=== PATIENT | male | born 1955 | race Caucasian/White ===

== ENCOUNTER 2025-03-11 02:55 | Emergency (ER) | payer OTHER ==
--- OUTSIDE RECORDS SUMMARY | 2025-03-11 02:57 | XMS REPORT | Continuity of Care Document ---
Author Name Unknown Address [address] [facility] [place] [id number] [facility] Address [address] [facility] [place] [address] Care Team Providers Care Corporate Law Specialist Name Role Phone ALLAN NGUYEN Primary Care Physician RADHA Curtis Attending Clinician Unavailabl e Social History Social Habit Start Date Stop Date Quantity Comments Source Sex Assigned At 1955 00:00:00 1955 00:00:[address] [facility] Smoking Status Start Date Stop Date Source Unknown if ever smoked [facility] Medications Ordered Medication Name Filled Medication Name Start Date Stop Date Current Medication? Ordering Clinician Indication Dosage Frequency Signature (SIG) Comments Components Source Eliquis 5MG 11-17 13:55: 00 No 1 Twice A [facility] Vital Signs Vital Name Observation Time Observation Value Comments S ourgisselle BP Diastolic 2023-11-17 14:10:00 70 mm[Hg] [facility] rate 2023-11-17 14:10:00 18 /min [facility] Heart Rate 2023-11-17 14:10:00 72 /min JING FITCH [facility] Weight 2023-11-17 09:44:00 90.962027 kg [facility] BMI (Body Mass Index) 2023-11-17 09:44:00 27.1 kg/m2 [facility] Procedures Procedure Date / Time Performed Performing Clinicia n Source Bilateral venous duplex scan of extremities 2023-11-17 00:00:00 [facility] Encounters Start Date/Time End Date/Time Encounter Type Admission Type Attending Clinicians Care Facility Care Department Encounter ID Source 2023-11-17 09:27:00 2023-11-17 14:07:00 Emergency ER RADHA QUINTERO [facility] [id number] [facility] l 2023-11-17 09:27:00 2023-11-17 14:07:[address] [facility] [id number] 39 [facility] Results Test Description Test Time Test Comments Results Result Co mments Source [facility] HospitalAutomated erythrocyte mean corpuscular volume (MCV) [id number] 10:10:00* Test Item Value Reference Range Interpretation Comme nts Mean Corpuscular Volume (jackie t code = 787-2) 92.3 80-97 [facility] HospitalAutomated erythrocyte mean corpuscular hemoglobin (mass per erythrocyte)2023-11-17 10:10:00* Test Item Value Reference Range Interpretation Comme nts Mean Corpuscular Hemoglobin (test code = 785-6) 30.8 27.0-31.2 [facility] HospitalAutomated erythrocyte mean corpuscular hemoglobin concentration (MCHC) measurement ([id number] 10:10:00* Test Item Value Reference Range Interpretation Comme nts Mean Corpuscular Hemoglobin Concent (test code = 786-4) 33.3 31.8-35.4 [facility] HospitalAutomated erythrocyte distribution width [id number] 10:10:00* Test Item Value Reference Range Interpretation Comme nts Red Cell Distribution Width (test code = 788-0) 13.2 12.5-18.0 [facility] HospitalAutomated blood platelet count (count/volume) 2023-11-17 10:10:00* Test Item Value Reference Range Interpretation Comme nts Platelet Count (test code = 777-3) 188 142-424 [facility] HospitalAutomated blood neutrophil count as percentage of total [id number] 10:10:00* Test Item Value Reference Range Interpretation Comme nts Neutrophils (%) (Auto) (test code = 770-8) 65.6 37-80 [facility] HospitalAutomated blood lymphocyte count as percentage of total [id number] 10:10:00* Test Item Value Reference Range Interpretation Comme nts Lymphocytes (%) (Auto) (test code = 736-9) 21.1 25-40 [facility] HospitalAutomated blood monocyte count as percentage of total [id number] 10:10:00* Test Item Value Reference Range Interpretation Comme nts Monocytes (%) (Auto) (test c ode = 5905-5) 10.4 1-15 [facility] HospitalAutomated blood eosinophil count as percentage of total [id number] 10:10:00* Test Item Value Reference Range Interpretation Comme nts Eosinophils (%) (Auto) (test code = 713-8) 2.2 1-3 [facility] HospitalAutomated blood basophil count as percentage of total [id number] 10:10:00* Test Item Value Reference Range Interpretation Comme nts Basophils (%) (Auto) (test c ode = 706-2) 0.5 0-3 [facility] HospitalAutomated blood nucleated erythrocyte count as percentage of total [id number] 10:10:00* Test Item Value Reference Range Interpretation Comme nts Nucleated Red Blood Cells % (test code = 76638-5) 0.0 [facility] HospitalAutomated blood neutrophil count (number/volume)2023-11-17 10:10:00* Test Item Value Reference Range Interpretation Comme nts Neutrophils # (Auto) (test c ode = 751-8) 3.79 1.8-7.7 [facility] HospitalFibrin D-dimer FEU [id number] 10:10:00* Test Item Value Reference Range Interpretation Comme nts D-Dimer (test code = 019606993) 1341 0.00-500 [facility])2023-11-17 10:10:00* Test Item Value Reference Range Interpretation Comme nts Sodium Level (test code = 17833-5) 140 135-145 [facility] potassium measurement (moles/volume)2023-11-17 10:10:00* Test Item Value Reference Range Interpretation Comme nts Potassium Level (test code = 2823-3) 4.4 3.6-5.2 [facility] chloride measurement (moles/volume)2023-11-17 10:10:00* Test Item Value Reference Range Interpretation Comme nts Chloride Level (test code = 2075-0) 103 100-108 [facility] carbon dioxide measurement (moles/volume)2023-11-17 10:10:00* Test Item Value Reference Range Interpretation Comme nts Carbon Dioxide Level (test c ode = 8-9) 26 21-32 [facility] anion [id number] 10:10:00 * Test Item Value Reference Range Interpretation Comme nts Anion Gap (test code = 89015-1) 11.0 3.0-11.0 [facility] urea nitrogen measurement (mass/volume)2023-11-17 10:10:00* Test Item Value Reference Range Interpretation Comme nts Blood Urea Nitrogen (test co de = 3094-0) 18 7-18 [facility] creatinine measurement (mass/volume)2023-11-17 10:10:00* Test Item Value Reference Range Interpretation Comme nts Creatinine (test code = 2160-0) 1.06 0.70-1.30 [facility] HospitalGFR estimate [id number] 10:10:00* Test Item Value Reference Range Interpretation Comme nts Estimat Glomerular Filtratio n Rate (test code = 991523401) > 60 >60 [facility] HospitalSerum or plasma urea nitrogen/creatinine mass [id number] 10:10:00* Test Item Value Reference Range Interpretation Comme nts BUN/Creatinine Ratio (test c ode = 3097-3) 16.98 7-18 [facility] HospitalSerum or plasma glucose measurement (mass/volume)2023-11-17 10:10:00* Test Item Value Reference Range Interpretation Comme nts Glucose Level (test code = 2345-7) 94 70-110 [facility] calcium measurement (mass/volume)2023-11-17 10:10:00* Test Item Value Reference Range Interpretation Comme nts Calcium Level (test code = 09213-1) 9.0 8.8-10.5 [facility] total bilirubin measurement (mass/volume)2023-11-17 10:10:00* Test Item Value Reference Range Interpretation Comme nts Total Bilirubin (test code = 1975-2) 1.5 0.0-1.0 [facility] HospitalSerum or plasma aspartate aminotransferase measurement (enzymatic activity/volume)2023-11-17 10:10:00* Test Item Value Reference Range Interpretation Comme nts Aspartate Amino Transf (AST/ SGOT) (test code = 1920-8) 26 15-37 [facility] alanine aminotransferase measurement (enzymatic activity/volume)2023-11-17 10:10:00* Test Item Value Reference Range Interpretation Comme nts Alanine Aminotransferase (AL T/SGPT) (test code = 1742-6) 43 12-78 [facility] HospitalSerum or plasma protein measurement (mass/volume)2023-11-17 10:10:00* Test Item Value Reference Range Interpretation Comme nts Total Protein (test code = 2885-2) 7.6 6.4-8.2 [facility] HospitalSerum or plasma albumin measurement (mass/volume)2023-11-17 10:10:00* Test Item Value Reference Range Interpretation Comme nts Albumin (test code = 1751-7) 4.0 3.4-5.0 [facility] globulin measurement by calculation (mass/volume)2023-11-17 10:10:00* Test Item Value Reference Range Interpretation Comme nts Globulin (test code = 97519-8) 3.6 2.3-3.5 [facility] HospitalSerum or plasma albumin/globulin mass ratio 2023-11-17 10:10:00* Test Item Value Reference Range Interpretation Comme nts Albumin/Globulin Ratio (test code = 1759-0) 1.111 1.1-1.8 [facility] HospitalSerum or plasma alkaline phosphatase measurement (enzymatic activity/volume)2023-11-17 10:10:00* Test Item Value Reference Range Interpretation Comme [facility] Alkaline Phosphatase (test c ode = 6768-6) 70 46-116 [facility] HospitalSerum or plasma natriuretic peptide B prohormone N-terminal measurement (mass/volume)2023-11-17 10:10:00* Test Item Value Reference Range Interpretation Comme [facility] Pro-B-Type Natriuretic Pepti de (test code = 73447-1) 30 0-125 [facility] leukocyte count (number/volume)2023-11-17 10:10:00* Test Item Value Reference Range Interpretation Comme [facility] White Blood Count (test code = 6690-2) 5.8 4.6-10.2 [facility] automated count (number/volume)2023-11-17 10:10:00* Test Item Value Reference Range Interpretation Comme [facility] Red Blood Count (test code = 789-8) 5.07 4.7-6.1 [facility] hemoglobin measurement (mass/volume) 2023-11-17 10:10:00* Test Item Value Reference Range Interpretation Comme [facility] Hemoglobin (test code = 718-7) 15.6 14.0-18.0 [facility]
[2025-03-11] MEDS ORDERED: IPRATROPIUM BROM 0.5MG/2.5ML ONE (03:55)
[2025-03-11] MEDS ORDERED: ALBUTEROL 2.5 MG/3 ML NEB SOL ONE (03:55)
[2025-03-11] MEDS ORDERED: predniSONE 20 MG TAB ONE (03:55)
[2025-03-11 03:58] LABS: Absolute Eosinophils 0.2 K/uL (0-0.5); Absolute Lymphocytes (CBC) 1.7 K/uL (0.7-4.9); Absolute Monocytes 0.7 K/uL (0.1-1.3); Absolute Neutrophil 4.2 K/uL (1.8-8.0); Basophils % 0.5 % (0-1.3); Eosinophils % 2.7 % (0-4.4); Hematocrit 42.4 % (39.6-49.0); Hemoglobin 14.5 g/dL (13.6-17.9); Lymphocytes % 25.4 % (15.3-44.8); MCH 32.4 pg (27.0-35.0); MCHC 34.1 g/dL (32.0-36.0); MCV 94.8 fL (80-100); MPV 8.2 fL (7.6-11.3); Monocytes % 9.8 % (3.3-12.3); Neutrophils % 61.6 % (41.7-73.7); Platelets 176 thou/uL (152-406); RBC Red Blood Cell Count 4.47 M/uL (4.33-5.43); Red Cell Distribution Width 14.3 % (12.1-15.2)
[2025-03-11 04:13] LABS: Albumin 3.6 g/dL (3.4-5.0); Albumin/Globulin Ratio 1.1 (1.1-1.8); Anion Gap 7.8 mEq/L (5.0-15.0); Bilirubin Direct 0.2 mg/dL (0-0.2); Bilirubin Indirect, Calculated 0.6 mg/dL (0.2-0.8); Bilirubin Total 0.8 mg/dL (0.2-1.0); Globulin 3.3 g/dL (2.3-3.5); Potassium 3.8 mEq/L (3.5-5.1); Protein, Total 6.9 g/dL (6.4-8.2); Troponin High Sensitivity 5.2 pg/mL (<58.9)
--- NOTE | 2025-03-11 04:46 | RAD REPORT ---
PROCEDURE: XR Chest, 1 View CLINICAL INDICATION: The patient is 69 years old and is Male; Cough. TECHNIQUE: Frontal view of the chest. COMPARISON: None. FINDINGS: LUNGS: Chronic appearing bilateral interstitial lung markings with no definite acute focal consolid ation. PLEURAL SPACE: No appreciable pleural effusion or pneumothorax. MEDIASTINUM: Unremarkable cardiomediastinal contour. BONES/JOINTS: No acute osseous abnormality. IMPRESSION: Chronic appearing bilateral interstitial lung markings with no definite acute chest findings. Electronically signed by: Devan Carrera MD 03/11/2025 04:41 AM CDT RP Transcribed Date/Time: 03/11/2025 4:46 AM
--- NOTE | 2025-03-11 05:50 | ER ---
Nurse's Notes [facility] Name: Dudley Andrews Age: 69 yrs Sex: Male : 1955 Arrival Date: 03/11/2025 Time: 02:55 Bed 4 Private MD: Diagnosis: Cough;Unspecified atrial flutter Presentation: 03/11 03:29 Chief complaint: Patient states: COUGH FOR 2 WEEKS DRY/PRODUCTIVE, SORE THROAT BEGAN br2 YESTERDAY. DENIES ANY OTHER SYMPTOMS. Coronavirus screen: Client denies travel out of the [place] in the last 14 days. Ebola Screen: Patient denies exposure to infectious person. Initial Sepsis Screen: Does the patient meet any 2 criteria? No. Patient's initial sepsis screen is negative. Does the patient have a suspected source of infection? No. Patient's initial sepsis screen is negative. Risk Assessment: Do you want to hurt yourself or someone else? Patient reports no desire to harm self or others. Onset of symptoms was February 25, 2025. 03:29 Method Of Arrival: Ambulatory br2 03:29 Acuity: CRISTIN 3 br2 Triage Assessment: 03:31 General: Appears in no apparent distress. comfortable, Behavior is calm, cooperative. br2 Historical: - Allergies: 03:31 No Known Allergies; br2 - Immunization history:: Adult Immunizations up to date. - Infectious Disease History:: Denies. - Social history:: Smoking status: Patient denies any tobacco usage or history of. Patient/guardian denies using alcohol, street drugs. - Family history:: not pertinent. Screenin:36 [facility] ED Fall Risk Assessment (Adult) History of falling in the last 3 months, 5 including since admission No falls in past 3 months (0 pts) Confusion or Disorientation No (0 pts) Intoxicated or Sedated No (0 pts) Impaired Gait No (0 pts) Mobility Assist Device Used No (0 pt) Altered Elimination No (0 pt) Score/Fall Risk Level 0 - 2 = Low Risk Oriented to surroundings, Maintained a safe environment, Hourly rounding (assess needs \T\ fall precautionary measures) done. 03:36 Abuse screen: Denies threats or abuse. Nutritional screening: No deficits noted. [facility] Tuberculosis screening: No symptoms or risk factors identified. Assessment: 03:33 General: Appears in no apparent distress. well groomed, Behavior is calm, cooperative. hm5 Pain: Complains of pain in throat Pain does not radiate. Pain currently is 5 out of 10 on a pain scale. Neuro: No deficits noted. Cardiovascular: No deficits noted. Denies chest pain, fatigue, lightheadedness, nausea, palpitations, vomiting. Respiratory: Reports cough that is productive, non-productive, pt reports cough has been dry for 2 weeks but only mildly productive since yesterday. pt unable to tell if he is short of breath or not. Onset: The symptoms/episode began/occurred gradually. GI: No deficits noted. No signs and/or symptoms were reported involving the gastrointestinal system. : No deficits noted. No signs and/or symptoms were reported regarding the genitourinary system. EENT: No deficits noted. No signs and/or symptoms were reported regarding the EENT system. Derm: No deficits noted. No signs and/or symptoms reported regarding the dermatologic system. Musculoskeletal: No deficits noted. No signs and/or symptoms reported regarding the musculoskeletal system. 05:58 Reassessment: Patient appears in no apparent distress at this time. Patient and/or vc1 family updated on plan of care and expected duration. Pain level reassessed. Patient is alert, oriented x 3, equal unlabored respirations, skin warm/dry/pink. Patient states feeling better. Patient states symptoms have improved. Vital Signs: 03:29 BP 118 / 89; Pulse 79; Resp 18; Temp 97.5(O); Pulse Ox 94% on R/A; Weight 99.79 kg; br2 Height 5 ft. 11 in. ; Pain 0/10; 04:00 BP 132 / 87; Pulse 106; Resp 15; Pulse Ox 96% ; vc1 05:00 BP 139 / 104; Pulse 110; Resp 15; Pulse Ox 97% ; vc1 05:44 BP 144 / 89; Pulse 96; Resp 18; Pulse Ox 96% ; vc1 03:29 Body Mass Index 30.68 (99.79 kg, 180.34 cm) br2 03:29 Pain Scale: Adult br2 ED Course: 02:57 Patient arrived in ED. mr 02:57 Cristofer Perez MD is Attending Physician. rt 03:31 Triage completed. br2 03:31 Arm band placed on right wrist. br2 03:32 Rena Baumann, RN is Primary Nurse. 5 03:36 Patient has correct armband on for positive identification. Placed in gown. Bed in low hm5 position. Call light in reach. Side rails up X 1. Provided Education on: plan of care. 03:36 No provider procedures requiring assistance completed. hm5 03:37 Pulse ox on. NIBP on. hm5 03:54 XRAY Chest (1 view) In Process Unspecified. EDMS 05:48 Ian Lopez MD is Referral Physician. rt 05:58 IV discontinued, intact, bleeding controlled, No redness/swelling at site. Pressure vc1 dressing applied. Administered Medications: 03:45 Drug: Albuterol Inhalation 2.5 mg Inhalation once Route: Inhalation; al5 03:45 Drug: Ipratropium Inhalation Aerosol 0.5 mg Inhalation once Route: Inhalation; al5 03:45 Drug: predniSONE PO 40 mg PO once Route: PO; al5 06:00 Follow up: Response: No adverse reaction vc1 Medication: 03:37 VIS not applicable for this client. 5 Outcome: 05:49 Discharge ordered by . rt 05:57 Discharged to home ambulatory, vc1 05:57 Condition: stable 05:57 Discharge instructions given to patient, Instructed on discharge instructions, follow up and referral plans. medication usage, Demonstrated understanding of instructions, follow-up care, medications, Prescriptions given X 4, 05:59 Patient left the ED. vc1 Signatures: Dispatcher [employer] [facility] Franky Pamela, Reg Reg mr Carole Jimenez RN RN vc1 Cristofer Perez MD MD rt Billie Hunt RN RN al5 Mitra Adrian RN RN br2 Rena Baumann, RN RN 5
--- NOTE | 2025-03-11 05:50 | EDPHYS ---
Physician Documentation [facility] Name: Dudley Andrews Age: 69 yrs Sex: Male : 1955 Arrival Date: 03/11/2025 Time: 02:55 Bed 4 Private MD: ED Physician Cristofer Perez HPI: 03/11 06:17 This 69 yrs old Male presents to ER via Ambulatory with complaints of Cough. rt 06:17 Patient presents to the ED with about a week and a half of a cough. Denies difficulty rt breathing, productive cough, chest pain, shortness of breath. Denies other acute complaints at this time, symptoms are mild in severity, no other aggravating or alleviating factors.. Historical: - Allergies: 03:31 No Known Allergies; br2 - Immunization history:: Adult Immunizations up to date. - Infectious Disease History:: Denies. - Social history:: Smoking status: Patient denies any tobacco usage or history of. Patient/guardian denies using alcohol, street drugs. - Family history:: not pertinent. ROS: 06:17 Constitutional: Negative for fever, chills, and weight loss, Cardiovascular: Negative rt for chest pain, palpitations, and edema, Abdomen/GI: Negative for abdominal pain, nausea, vomiting, diarrhea, and constipation, MS/Extremity: Negative for injury and deformity, Skin: Negative for injury, rash, and discoloration, Neuro: Negative for headache, weakness, numbness, tingling, and seizure, 06:17 Respiratory: Positive for cough, Negative for shortness of breath, Exam: 06:17 Constitutional: This is a well developed, well nourished patient who is awake, alert, rt and in no acute distress. Head/Face: Normocephalic, atraumatic. Chest/axilla: Normal chest wall appearance and motion. Nontender with no deformity. No lesions are appreciated. Cardiovascular: Regular rate and rhythm with a normal S1 and S2. No gallops, murmurs, or rubs. Normal PMI, no JVD. No pulse deficits. Respiratory: Lungs have equal breath sounds bilaterally, clear to auscultation and percussion. No rales, rhonchi or wheezes noted. No increased work of breathing, no retractions or nasal flaring. Abdomen/GI: Soft, non-tender, with normal bowel sounds. No distension or tympany. No guarding or rebound. No evidence of tenderness throughout. Skin: Warm, dry with normal turgor. Normal color with no rashes, no lesions, and no evidence of cellulitis. MS/ Extremity: Pulses equal, no cyanosis. Neurovascular intact. Full, normal range of motion. Neuro: Awake and alert, GCS 15, oriented to person, place, time, and situation. Cranial nerves II-XII grossly intact. Motor strength 5/5 in all extremities. Sensory grossly intact. Cerebellar exam normal. Normal gait. 06:17 ECG was reviewed by the Attending Physician. Vital Signs: 03:29 BP 118 / 89; Pulse 79; Resp 18; Temp 97.5(O); Pulse Ox 94% on R/A; Weight 99.79 kg; br2 Height 5 ft. 11 in. ; Pain 0/10; 04:00 BP 132 / 87; Pulse 106; Resp 15; Pulse Ox 96% ; vc1 05:00 BP 139 / 104; Pulse 110; Resp 15; Pulse Ox 97% ; vc1 05:44 BP 144 / 89; Pulse 96; Resp 18; Pulse Ox 96% ; vc1 03:29 Body Mass Index 30.68 (99.79 kg, 180.34 cm) br2 03:29 Pain Scale: Adult br2 MDM: 03:31 Medical Screening Exam initiated rt 06:17 Differential Diagnosis: Other Bronchospasm, pneumonia, CHF. Data reviewed: vital signs, rt nurses notes, lab test result(s), EKG, radiologic studies. Consideration of Admission/Observation Escalation of care including admission/observation considered. Patient found to have atrial flutter. The rate is controlled, I believe that the machine is picking up the flutter waves and therefore giving a faster heart rate than his true ventricular rate. Patient has a cough but no chest pain, shortness of breath. I do not suspect that this cough is from the atrial flutter. Unclear how long he has been in this rhythm for. As the rate is controlled, I do not believe that he requires admission at this time. Will start patient on anticoagulants, have him follow-up with cardiology as an outpatient, he is comfortable with this plan and verbalizes understanding. Strict return precautions were discussed.. I considered the following discharge prescriptions or medication management in the emergency department Medications were administered in the Emergency Department. See MAR. Independent interpretation of the following test(s) in the Emergency Department X-Ray: My interpretation is No infiltrate seen on my interpretation of x-ray images. Test considered but Not performed: CT: Low suspicion for pulmonary embolus, CT angiogram not indicated. Counseling: I had a detailed discussion with the patient and/or guardian regarding the historical points, exam findings, and any diagnostic results supporting the discharge/admit diagnosis, lab results, radiology results, the need for outpatient follow up, to return to the emergency department if symptoms worsen or persist or if there are any questions or concerns that arise at home. Response to treatment: the patient's symptoms have markedly improved after treatment. 03/11 03:34 Order name: Basic Metabolic Panel; Complete Time: 04:22 rt 03/11 03:34 Order name: CBC with Diff; Complete Time: 04:22 rt 03/11 03:34 Order name: LFT's; Complete Time: 04:22 rt 03/11 03:34 Order name: NT PRO-BNP; Complete Time: 04:22 rt 03/11 03:34 Order name: Troponin HS; Complete Time: 04:22 rt 03/11 03:34 Order name: XRAY Chest (1 view) rt 03/11 03:34 Order name: EKG; Complete Time: 03:35 rt 03/11 03:34 Order name: Cardiac monitoring; Complete Time: 05:15 rt 03/11 03:34 Order name: EKG - Nurse/Tech; Complete Time: 05:15 rt 03/11 03:34 Order name: IV Saline Lock; Complete Time: 05:15 rt 03/11 03:34 Order name: Labs collected and sent; Complete Time: 05:15 rt 03/11 03:34 Order name: O2 Per Protocol; Complete Time: 03:37 rt 03/11 03:34 Order name: O2 Sat Monitoring; Complete Time: 03:37 rt EC:17 Rate is 84 beats/min. Rhythm is regular, A flutter with No ectopy. QRS [place] is Normal. rt QRS interval is normal. QT interval is normal. No Q waves. No ST changes noted. Interpreted by me. Administered Medications: 03:45 Drug: Albuterol Inhalation 2.5 mg Inhalation once Route: Inhalation; al5 03:45 Drug: Ipratropium Inhalation Aerosol 0.5 mg Inhalation once Route: Inhalation; al5 03:45 Drug: predniSONE PO 40 mg PO once Route: PO; al5 06:00 Follow up: Response: No adverse reaction vc1 Disposition Summary: 03/11/25 05:49 Discharge Ordered Notes: Location: Home rt Problem: new rt Symptoms: have improved rt Condition: Stable rt Diagnosis - Cough rt - Unspecified atrial flutter rt Followup: rt - With: Private Physician - When: 2 - 3 days - Reason: Followup: rt - With: Ian Lopez MD - When: 5 - 6 days - Reason: Discharge Instructions: - Discharge Summary Sheet rt - Atrial Flutter rt - Cough, Adult rt Forms: - Medication Reconciliation Form rt - Antibiotic Education rt - Prescription Opioid Use rt - Patient Portal Instructions rt - Leadership Thank You Letter rt Prescriptions: - Eliquis 5 mg Oral tablet - take 1 tablet ORAL route 2 times per day; 60 tablet; Refills: 0, Product rt Selection Permitted - albuterol sulfate 90 mcg/actuation Inhalation HFA Aerosol Inhaler - inhale 3 puff INHALATION route every 6 hours as needed for shortness of breath rt or wheezing; 2 Each; Refills: 0, Product Selection Permitted - Tessalon Perles 100 mg Oral Capsule - take 1 capsule ORAL route every 8 hours As needed; 15 capsule; Refills: 0, rt Product Selection Permitted - Prednisone 20 mg Oral tablet - take 2 tablets ORAL route once daily; 8 tablet; Refills: 0, Product Selection rt Permitted Signatures: Dispatcher [employer] Cristofer Sherwood MD MD rt Billie Hunt RN RN al5 Mitra Adrian RN RN br2 Carole Jimenez RN vc1
[2025-03-11 06:10] VITALS: TEMP 97.5
[2025-03-11 06:15] VITALS: BP 144/89; O2SAT 96
--- NOTE | 2025-03-12 16:46 | EKG ---
Test Date: 2025-03-11 Test Time: 03:44:33 Landscape Contractor: BRANDAN MEASUREMENT RESULTS: Intervals: Rate: 111 CA: QRSD: 90 QT: 456 QTc: 620 [place]: P: 87 CA: QRS: 11 T: 63 INTERPRETIVE STATEMENTS: Atrial flutter with variable AV block Low voltage QRS Inferior infarct, possibly acute Cannot rule out Anterior infarct, age undetermined Lateral injury pattern Prolonged QT ACUTE ME / STEMI Abnormal ECG Compared to ECG 10/24/2010 17:42:24 Low QRS voltage now present Myocardial infarct finding now present Prolonged QT interval now present Sinus bradycardia no longer present Electronically Signed On 03-12-25 16:44:14 CDT by Jr Carpenter
--- NOTE | 2025-03-12 16:46 | EKG ---
Test Date: 2025-03-11 Test Time: 03:42:40 Certified Legal Investigator: BRANDAN MEASUREMENT RESULTS: Intervals: Rate: 121 MN: 196 QRSD: 286 QT: 402 QTc: 570 [place]: P: 69 MN: 196 QRS: 77 T: 80 INTERPRETIVE STATEMENTS: Atrial flutter Right bundle branch block Inferior infarct, age undetermined Anterolateral infarct, age undetermined Abnormal ECG Compared to ECG 10/24/2010 17:42:24 Right bundle-branch block now present Myocardial infarct finding now present Sinus bradycardia no longer present Electronically Signed On 03-12-25 16:44:32 CDT by Jr Carpenter
== END 2025-03-11 05:59 | disposition home or self-care (01) ==
LOC: ER 02:55
DX: R05.9 Cough, unspecified (principal); I48.92 Unspecified atrial flutter
CPT/HCPCS: 93005 ×2; 85025; 80048; 36415; 80076; 84484; 83880; 71045; 99284; J7512; J7613; J7644

== ENCOUNTER 2025-03-14 01:28 | Emergency (ER) | payer OTHER ==
--- OUTSIDE RECORDS SUMMARY | 2025-03-14 01:31 | XMS REPORT | Continuity of Care Document ---
Author Name Unknown Address [address] [place] [address] [facility] Address [address] [place] [address] Care Team Providers Care Copy Reader Name Role Phone ALLAN NGUYEN Primary Care Physician RADHA Curtis Attending Clinician Unavailabl e Social History Social Habit Start Date Stop Date Quantity Comments Source Sex Assigned At 1955 00:00:00 1955 00:00:00 Male [facility] Smoking Status Start Date Stop Date Source Unknown if ever smoked [facility] Medications Ordered Medication Name Filled Medication Name Start Date Stop Date Current Medication? Ordering Clinician Indication Dosage Frequency Signature (SIG) Comments Components Source Eliquis 5MG 11-17 13:55: 00 No 1 [facility] Vital Signs Vital Name Observation Time Observation Value Comments S ofe BP Diastolic 2023-11-17 14:10:00 70 mm[facility]Hg[facility] Respiratory rate 2023-11-17 14:10:00 18 /min [facility] Heart Rate 2023-11-17 14:10:00 72 /min JING FITCH [facility] Weight 2023-11-17 09:44:00 90.577888 kg [facility] BMI (Body Mass Index) 2023-11-17 09:44:00 27.1 kg/m2 [facility] Procedures Procedure Date / Time Performed Performing Clinicia n Source Bilateral venous duplex scan of extremities 2023-11-17 00:00:00 [facility] Encounters Start Date/Time End Date/Time Encounter Type Admission Type Attending Clinicians Care Facility Care Department Encounter ID Source 2023-11-17 09:27:00 2023-11-17 14:07:00 Emergency ER RADHA QUINTERO [facility] [id number] [facility] 2023-11-17 09:27:00 2023-11-17 14:07:00 Departed Emergency Room [facility] [id number] [facility] Results Test Description Test Time Test Comments Results Result Co mments Source [facility] HospitalAutomated erythrocyte mean corpuscular volume (MCV) [id number] 10:10:00* Test Item Value Reference Range Interpretation Comme nts Mean Corpuscular Volume (jackie t code = 787-2) 92.3 80-97 [facility] HospitalAutomated erythrocyte mean corpuscular hemoglobin (mass per erythrocyte)2023-11-17 10:10:00* Test Item Value Reference Range Interpretation Comme nts Mean Corpuscular Hemoglobin (test code = 785-6) 30.8 27.0-31.2 [facility] HospitalAutomated erythrocyte mean corpuscular hemoglobin concentration (MCHC) measurement ([id number] 10:10:00* Test Item Value Reference Range Interpretation Comme nts Mean Corpuscular Hemoglobin Concent (test code = 786-4) 33.3 31.8-35.4 [facility] distribution width [id number] 10:10:00* Test Item Value Reference Range Interpretation Comme nts Red Cell Distribution Width (test code = 788-0) 13.2 12.5-18.0 [facility] HospitalAutomated blood platelet count (count/volume) 2023-11-17 10:10:00* Test Item Value Reference Range Interpretation Comme nts Platelet Count (test code = 777-3) 188 142-424 [facility] HospitalAutomated blood neutrophil count as percentage of total ddeobrpisx2039-10-62 10:10:00* Test Item Value Reference Range Interpretation Comme nts Neutrophils (%) (Auto) (test code = 770-8) 65.6 37-80 [facility] HospitalAutomated blood lymphocyte count as percentage of total rybnxmsutu6076-92-04 10:10:00* Test Item Value Reference Range Interpretation Comme nts Lymphocytes (%) (Auto) (test code = 736-9) 21.1 25-40 [facility] HospitalAutomated blood monocyte count as percentage of total tyvefouhjt8742-75-18 10:10:00* Test Item Value Reference Range Interpretation Comme nts Monocytes (%) (Auto) (test c ode = 5905-5) 10.4 1-15 [facility] HospitalAutomated blood eosinophil count as percentage of total bxsmzqpzkd2879-27-52 10:10:00* Test Item Value Reference Range Interpretation Comme nts Eosinophils (%) (Auto) (test code = 713-8) 2.2 1-3 [facility] HospitalAutomated blood basophil count as percentage of total lindhjadvw2850-69-97 10:10:00* Test Item Value Reference Range Interpretation Comme nts Basophils (%) (Auto) (test c ode = 706-2) 0.5 0-3 [facility] HospitalAutomated blood nucleated erythrocyte count as percentage of total wdisbadwzt4315-51-85 10:10:00* Test Item Value Reference Range Interpretation Comme nts Nucleated Red Blood Cells % (test code = 29088-4) 0.0 [facility] HospitalAutomated blood neutrophil count (number/volume)2023-11-17 10:10:00* Test Item Value Reference Range Interpretation Comme nts Neutrophils # (Auto) (test c ode = 751-8) 3.79 1.8-7.7 [facility] HospitalFibrin D-dimer FEU [id number] 10:10:00* Test Item Value Reference Range Interpretation Comme nts D-Dimer (test code = 588650095) 1341 0.00-500 [facility] ([facility]oles/volume)2023-11-17 10:10:00* Test Item Value Reference Range Interpretation Comme nts Sodium Level (test code = 37474-5) 140 135-145 [facility] plasma potassium measurement (moles/volume)2023-11-17 10:10:00* Test Item Value Reference Range Interpretation Comme nts Potassium Level (test code = 2823-3) 4.4 3.6-5.2 [facility] chloride measurement (moles/volume)2023-11-17 10:10:00* Test Item Value Reference Range Interpretation Comme nts Chloride Level (test code = 2075-0) 103 100-108 [facility] carbon dioxide measurement (moles/volume)2023-11-17 10:10:00* Test Item Value Reference Range Interpretation Comme nts Carbon Dioxide Level (test c ode = 8-9) 26 21-32 [facility] plasma anion [id number] 10:10:00 * Test Item Value Reference Range Interpretation Comme nts Anion Gap (test code = 58614-1) 11.0 3.0-11.0 [facility] urea nitrogen measurement (mass/volume)2023-11-17 10:10:00* Test Item Value Reference Range Interpretation Comme nts Blood Urea Nitrogen (test co de = 3094-0) 18 7-18 [facility] creatinine measurement (mass/volume)2023-11-17 10:10:00* Test Item Value Reference Range Interpretation Comme nts Creatinine (test code = 2160-0) 1.06 0.70-1.30 [facility] HospitalGFR estimate [id number] 10:10:00* Test Item Value Reference Range Interpretation Comme nts Estimat Glomerular Filtratio n Rate (test code = 988088490) > 60 >60 [facility] HospitalSerum or plasma urea nitrogen/creatinine mass [id number] 10:10:00* Test Item Value Reference Range Interpretation Comme nts BUN/Creatinine Ratio (test c ode = 3097-3) 16.98 7-18 [facility] glucose measurement (mass/volume)2023-11-17 10:10:00* Test Item Value Reference Range Interpretation Comme nts Glucose Level (test code = 2345-7) 94 70-110 [facility] calcium measurement (mass/volume)2023-11-17 10:10:00* Test Item Value Reference Range Interpretation Comme nts Calcium Level (test code = 51824-2) 9.0 8.8-10.5 [facility] total bilirubin measurement (mass/volume)2023-11-17 10:10:00* Test Item Value Reference Range Interpretation Comme nts Total Bilirubin (test code = 1975-2) 1.5 0.0-1.0 [facility] plasma aspartate aminotransferase measurement (enzymatic activity/volume)2023-11-17 10:10:00* Test Item Value Reference Range Interpretation Comme nts Aspartate Amino Transf (AST/ SGOT) (test code = 1920-8) 26 15-37 [facility] alanine aminotransferase measurement (enzymatic activity/volume)2023-11-17 10:10:00* Test Item Value Reference Range Interpretation Comme nts Alanine Aminotransferase (AL T/SGPT) (test code = 1742-6) 43 12-78 [facility] protein measurement (mass/volume)2023-11-17 10:10:00* Test Item Value Reference Range Interpretation Comme nts Total Protein (test code = 2885-2) 7.6 6.4-8.2 [facility] albumin measurement (mass/volume)2023-11-17 10:10:00* Test Item Value Reference Range Interpretation Comme nts Albumin (test code = 1751-7) 4.0 3.4-5.0 [facility] globulin measurement by calculation (mass/volume)2023-11-17 10:10:00* Test Item Value Reference Range Interpretation Comme [facility] Globulin (test code = 23128-4) 3.6 2.3-3.5 [facility] HospitalSerum or plasma albumin/globulin mass ratio 2023-11-17 10:10:00* Test Item Value Reference Range Interpretation Comme nts Albumin/Globulin Ratio (test code = 1759-0) 1.111 1.1-1.8 [facility] HospitalSerum or plasma alkaline phosphatase measurement (enzymatic activity/volume)2023-11-17 10:10:00* Test Item Value Reference Range Interpretation Comme [facility] Alkaline Phosphatase (test c ode = 6768-6) 70 46-116 [facility] HospitalSerum or plasma natriuretic peptide B prohormone N-terminal measurement (mass/volume)2023-11-17 10:10:00* Test Item Value Reference Range Interpretation Comme [facility] Pro-B-Type Natriuretic Pepti de (test code = 70747-2) 30 0-125 [facility] leukocyte count (number/volume)2023-11-17 10:10:00* Test Item Value Reference Range Interpretation Comme [facility] White Blood Count (test code = 6690-2) 5.8 4.6-10.2 [facility] automated count (number/volume)2023-11-17 10:10:00* Test Item Value Reference Range Interpretation Comme [facility] Red Blood Count (test code = 789-8) 5.07 4.7-6.1 [facility] hemoglobin [facility] (mass/volume) 2023-11-17 10:10:00* Test Item Value Reference Range Interpretation Comme [facility] Hemoglobin (test code = 718-7) 15.6 14.0-18.0 [facility]
[2025-03-14] MEDS ORDERED: CEFTRIAXONE 1000 MG/VIAL ONE (02:04)
[2025-03-14] MEDS ORDERED: GUAIFENESIN/DM 5 ML UCUP ONE ×2 (02:05→05:23)
[2025-03-14] MEDS ORDERED: NA CHLORIDE 0.9% 50 ML ONE (02:05)
[2025-03-14] MEDS ORDERED: NA CHLORIDE 0.9% 1,000 ML ONE (02:05)
[2025-03-14 02:46] LABS: Absolute Eosinophils 0.1 K/uL (0-0.5); Absolute Lymphocytes (CBC) 2.4 K/uL (0.7-4.9); Absolute Monocytes 0.8 K/uL (0.1-1.3); Absolute Neutrophil 6.1 K/uL (1.8-8.0); Basophils % 0.5 % (0-1.3); Eosinophils % 0.9 % (0-4.4); Hematocrit 43.2 % (39.6-49.0); Hemoglobin 14.5 g/dL (13.6-17.9); Lymphocytes % 25.2 % (15.3-44.8); MCH 31.7 pg (27.0-35.0); MCHC 33.6 g/dL (32.0-36.0); MCV 94.4 fL (80-100); MPV 8.2 fL (7.6-11.3); Monocytes % 8.5 % (3.3-12.3); Neutrophils % 64.9 % (41.7-73.7); PT Prothrombin Time 11.4 SECONDS (10-13.0); Platelets 185 thou/uL (152-406); RBC Red Blood Cell Count 4.58 M/uL (4.33-5.43); Red Cell Distribution Width 14.2 % (12.1-15.2)
[2025-03-14 02:55] LABS: Albumin 3.7 g/dL (3.4-5.0); Albumin/Globulin Ratio 1.1 (1.1-1.8); Anion Gap 8.5 mEq/L (5.0-15.0); Bilirubin Direct 0.3 mg/dL (0-0.2); Bilirubin Indirect, Calculated 0.6 mg/dL (0.2-0.8); Bilirubin Total 0.9 mg/dL (0.2-1.0); Globulin 3.3 g/dL (2.3-3.5); Magnesium 2.2 mg/dL (1.6-2.4); Potassium 3.5 mEq/L (3.5-5.1)
[2025-03-14] MEDS ORDERED: METHYLPREDNISOLONE 125 MG INJ ONE (02:58)
--- NOTE | 2025-03-14 04:15 | RAD REPORT ---
EXAM: CT chest angiography with intravenous contrast CLINICAL DATA: 69 years Male DYSPNEA. TECHNICAL DATA: Following the administration of intravenous contrast, multiple high-resolution axial images of the ch est were performed followed by sagittal and coronal reconstructed images. Coronal oblique MIP images were also performed. The CT study is performed according to ALARA (as low as reasonably achiev able) or ALARA/IMAGE GENTLY, with automatic adjustment of mA and/or kV according to patient size. Performed on: 03/14/2025 at 3:31 AM COMPARISONS: Chest x-ray performed on 03/14/2025 at 2:33 AM FINDINGS: There is satisfactory visualization and contrast opacification of pulmonary arteries. There is a small linear intra-arterial filling defect within a segmental anterior left lower lobe pulmonary artery consistent with a pulmonary embolism. No additional intra-arterial filling defects are identif ied. The thoracic aorta is normal in caliber and contour without evidence of aneurysm or dissection. The lungs are well expanded. There is mild bibasilar dependent fibrosis and/or atelectasis. No focal airspace consolidation is identified. There is no evidence of a pneumothorax. There are no pleural effusions. The central airways are patent. The heart is normal in size. There is no pericardial effusion. There is no reflux of contrast into th e hepatic veins to suggest right heart strain. The RV/LV ratio is within normal limits. There is no evidence of hilar, mediastinal or axillary lymphadenopathy. No acute osseous abnormality is identified. The visualized upper abdominal structures are unremarkable. IMPRESSION: 1. Small linear intra-arterial filling defect within a segmental anterior left lower lobe pulmonary artery consistent with a pulmonary embolism. 2. Mild bibasilar dependent fibrosis and/or atelectasis. These critical findings were discussed with Dr. Rai Juan on 03/14/2025 at 4:11 AM central time . Electronically signed by: Meme Hoover DO 03/14/2025 04:11 AM CDT Due to temporary technical issues with the PACS/Verisim reporting system, reports are being earnestine d by the in-house radiologist without review as a courtesy to ensure prompt reporting the interpreting radiologist is fully responsible for the content of the report. Transcribed Date/Time: 03/14/2025 4:14 AM
--- NOTE | 2025-03-14 05:13 | EDPHYS ---
Physician Documentation [facility] Name: Dudley Andrews Age: 69 yrs Sex: Male : 1955 Arrival Date: 03/14/2025 Time: 01:28 Bed 20 Private MD: ED Physician Rai Juan HPI: 03/14 01:44 This 69 yrs old Male presents to ER via Ambulatory with complaints of Cough, sp4 Shortness Of Breath. 01:44 Patient was seen here on 03/11/2025 and given prescriptions - Prescriptions: - Eliquis sp4 5 mg Oral tablet - take 1 tablet ORAL route 2 times per day; Selection Permitted - albuterol sulfate 90 mcg/actuation Inhalation HFA Aerosol Inhaler - inhale 3 puff INHALATION route every 6 hours as needed for shortness of breath or wheezing; 2 Each; Refills: 0, - Tessalon Perles 100 mg Oral Capsule - take 1 capsule ORAL route every 8 hours As needed; 15 capsule; Product Selection Permitted - Prednisone 20 mg Oral tablet - take 2 tablets ORAL route once daily; 8 tablet; Refills: 0,. 20:57 Patient today presents with cough shortness of breath and complaint of purulent sputum sp4 and voice hoarseness. This problem has been worsening in the past 2 weeks.. Historical: - Allergies: 01:43 No Known Allergies; br2 - Home Meds: 01:43 None [Active]; br2 - PSHx: 01:43 None; br2 - Immunization history:: Adult Immunizations up to date. - Infectious Disease History:: Denies. - Social history:: Smoking status: Patient/guardian denies using tobacco, Patient/guardian denies using alcohol, street drugs. - Family history:: not pertinent. ROS: 20:54 Constitutional: Negative for fever, chills, and weight loss, positive cough positive sp4 shortness of breath. 20:54 All other systems are negative, Exam: 20:54 Constitutional: This is a well developed, well nourished patient who is awake, alert, sp4 and in no acute distress. Head/Face: Normocephalic, atraumatic. Eyes: Pupils equal round and reactive to light, extra-ocular motions intact. Lids and lashes normal. Conjunctiva and sclera are not injected. Cornea within normal limits. Periorbital areas with no swelling, redness, or edema. ENT: Nares patent. No nasal discharge, no septal abnormalities noted. Tympanic membranes are normal and external auditory canals are clear. Oropharynx with no redness, swelling, or masses, exudates, or evidence of obstruction, uvula midline. Mucous membranes moist. Neck: Trachea midline, no thyromegaly or masses palpated, and no cervical lymphadenopathy. Supple, full range of motion without nuchal rigidity, or vertebral point tenderness. Chest/axilla: Normal chest wall appearance and motion. Nontender with no deformity. No lesions are appreciated. Cardiovascular: Regular rate and rhythm with a normal S1 and S2. No gallops, murmurs, or rubs. Normal PMI, no JVD. No pulse deficits. Respiratory: Lungs have equal breath sounds bilaterally, clear to auscultation and percussion. No rales, rhonchi or wheezes noted. No increased work of breathing, no retractions or nasal flaring. Abdomen/GI: Soft, with normal bowel sounds. No distension or tympany. No guarding or rebound. No evidence of tenderness throughout. Back: No spinal tenderness. No costovertebral tenderness. Skin: Warm, dry with normal turgor. Normal color with no rashes, no lesions, and no evidence of cellulitis. MS/ Extremity: Pulses equal, no cyanosis. Neurovascular intact. Full, normal range of motion. Neuro: Awake and alert, GCS 15, oriented to person, place, time, and situation. Cranial nerves II-XII grossly intact. Motor strength 5/5 in all extremities. Sensory grossly intact. Psych: Awake, alert, with orientation to person, place and time. Behavior, mood, and affect are within normal limits 20:55 EKG was reviewed from 03/11/2025 at 0 344 at that time patient EKG has revealed sp4 atrial flutter with variable AV block. Prolonged QT, patient ventricular rate was measured at 111. Vital Signs: 01:41 BP 133 / 81; Pulse 74; Resp 18; Temp 98.3; Pulse Ox 98% ; Weight 99.79 kg; Height 5 ft. br2 11 in. ; Pain 3/10; 02:22 BP 141 / 92; Pulse 75; Pulse Ox 98% on R/A; rg5 03:13 BP 138 / 89; Pulse 74; Resp 19; Pulse Ox 100% ; rg5 04:30 BP 125 / 82; Pulse 75; Resp 19; Pulse Ox 98% on R/A; rg5 01:41 Body Mass Index 30.68 (99.79 kg, 180.34 cm) br2 01:41 Pain Scale: Adult br2 Hancock Coma Score: 20:54 Eye Response: spontaneous(4). Motor Response: obeys commands(6). Verbal Response: sp4 oriented(5). Total: 15. MDM: 01:51 Medical Screening Exam initiated sp4 04:56 ED course: COMPARISONS: Chest x-ray performed on 03/14/2025 at 2:33 AM FINDINGS: There sp4 is satisfactory visualization and contrast opacification of pulmonary arteries. There is a small linear intra-arterial filling defect within a segmental anterior left lower lobe pulmonary artery consistent with a pulmonary embolism. No additional intra-arterial filling defects are identified. The thoracic aorta is normal in caliber and contour without evidence of aneurysm or dissection. The lungs are well expanded. There is mild bibasilar dependent fibrosis and/or atelectasis. No focal airspace consolidation is identified. There is no evidence of a pneumothorax. There are no pleural effusions. The central airways are patent. The heart is normal in size. There is no pericardial effusion. There is no reflux of contrast into the hepatic veins to suggest right heart strain.The RV/LV ratio is within normal limits. There is no evidence of hilar, mediastinal or axillary lymphadenopathy. No acute osseous abnormality is identified. The visualized upper abdominal structures are unremarkable. IMPRESSION: 1. Small linear intra-arterial filling defect within a segmental anterior left lower lobe pulmonary artery consistent with a pulmonary embolism. 2. Mild bibasilar dependent fibrosis and/or atelectasis. These critical findings were discussed with Dr. Rai Juan on 03/14/2025 . 20:56 Differential Diagnosis: Obstructed Airway Bronchitis Influenza Upper Respiratory sp4 Infection Sinusitis Pharyngitis Otitis Media. Data reviewed: vital signs, nurses notes, lab test result(s), radiologic studies, CT scan. Consideration of Admission/Observation Escalation of care including admission/observation considered. ED course: CT today has revealed small filling defect left lower subsegmental section consistent with small pulmonary embolism. Also mild bibasilar dependent fibrosis and atelectasis. Patient's primary complaint is moderate to severe cough associated with voice hoarseness. Patient also reported purulent sputum. Symptoms are not consistent with acute pulmonary embolus. Small pulmonary embolus likely an incidental finding. However patient was already initiated on p.o. Eliquis 5 mg twice daily on 03/11/2025 . Patient was advised to continue Eliquis as prescribed.. 03/14 01:40 Order name: Basic Metabolic Panel; Complete Time: 04:38 [facility] 03/14 01:40 Order name: CBC with Diff; Complete Time: 02:51 [facility] 03/14 01:40 Order name: LFT's; Complete Time: 04:38 [facility] 03/14 01:40 Order name: Magnesium; Complete Time: 04:38 [facility] 03/14 01:40 Order name: PT-INR; Complete Time: 02:51 [facility] 03/14 01:51 Order name: Blood Culture Adult (2) [facility] 03/14 01:40 Order name: XRAY Chest (1 view) [facility] 03/14 01:50 Order name: CT Chest For PE Angio [facility] 03/14 01:40 Order name: Cardiac monitoring; Complete Time: 02:16 [facility] 03/14 01:40 Order name: IV Saline Lock; Complete Time: 02:15 [facility] 03/14 01:40 Order name: Labs collected and sent; Complete Time: 02:15 [facility] 03/14 01:40 Order name: O2 Per Protocol; Complete Time: 01:42 [facility] 03/14 01:40 Order name: O2 Sat Monitoring; Complete Time: 01:42 Administered Medications: 02:15 Drug: NS 0.9% IV 1000 ml IV at 1 bolus Per protocol; to be given as a bolus over 60 rg5 minutes Route: IV; Rate: 1 bolus; Site: right antecubital; 03:30 Follow up: IV Status: Completed infusion; IV Intake: 1000ml rg5 02:15 Drug: Rocephin - Rocephin (cefTRIAXone) IVPB 1 grams IVPB once over 30 mins; (mix in 50 rg5 mL NS) Route: IVPB; Infused Over: 30 mins; Site: right antecubital; 02:45 Follow up: IV Status: Completed infusion rg5 02:15 Drug: Dextromethorphan-Guaifenesin PO Liquid 10 mg-100 mg/5 mL 20 ml PO once Route: PO; rg5 02:32 Follow up: Response: No adverse reaction rg5 03:08 Drug: MethylPrednisoLONE IVP 125 mg IVP once Route: IVP; Site: right antecubital; rg5 05:29 Follow up: Response: No adverse reaction; Pain is decreased rg5 05:15 Drug: Dextromethorphan-Guaifenesin PO Liquid 10 mg-100 mg/5 mL 20 ml PO once Route: PO; rg5 05:29 Follow up: Response: No adverse reaction; Pain is decreased rg5 Disposition: 20:58 Chart complete. sp4 Disposition Summary: 03/14/25 05:13 Discharge Ordered Notes: Location: Home sp4 Problem: new sp4 Symptoms: have improved sp4 Condition: Stable sp4 Diagnosis - Cough sp4 - purulent sputum, Subsegmental Pulmonary Embolus sp4 Followup: sp4 - With: Private Physician - When: 7 - 10 days - Reason: Recheck today's complaints Discharge Instructions: - Discharge Summary Sheet sp4 - Cough, Adult sp4 Forms: - Patient Portal Instructions sp4 Prescriptions: - acetaminophen-codeine 300-60 mg Oral tablet - take 1 tablet ORAL route every 6 hours PRN cough; 25 tablet; Refills: 0, sp4 Product Selection Permitted - cefdinir 300 mg Oral capsule - take 1 capsule ORAL route 2 times per day for 10 days; 20 capsule; Refills: 0, sp4 Product Selection Permitted - dextromethorphan-guaifenesin 20-400 mg Oral tablet - take 2 tablet ORAL route every 6 hours as needed for cough; 60 tablet; Refills: sp4 0, Product Selection Permitted Signatures: Dispatcher [employer] Rai Zuniga MD MD sp4 Andrea Gallego RN RN rg5 Mitra Adrian RN RN br2 Corrections: (The following items were deleted from the chart) 01:40 01:40 Chest Single View+RAD.RAD.BRZ ordered. EDMS EDMS 01:51 01:51 BLOOD CULTURE*+BA.LAB.BRZ ordered. EDMS EDMS
--- NOTE | 2025-03-14 05:13 | ER ---
Nurse's Notes [facility] Name: Dudley Andrews Age: 69 yrs Sex: Male : 1955 Arrival Date: 03/14/2025 Time: 01:28 Bed 20 Private MD: Diagnosis: Cough;purulent sputum, Subsegmental Pulmonary Embolus Presentation: 03/14 01:41 Chief complaint: Patient states: PROD COUGH, SOB, BILATERAL EAR PAIN AND SORE THROAT br2 FOR THE LAST 2 WEEKS. Coronavirus screen: Client denies travel out of the [place] in the last 14 days. Ebola Screen: Patient denies exposure to infectious person. Initial Sepsis Screen: Does the patient meet any 2 criteria? No. Patient's initial sepsis screen is negative. Does the patient have a suspected source of infection? No. Patient's initial sepsis screen is negative. Risk Assessment: Do you want to hurt yourself or someone else? Patient reports no desire to harm self or others. Onset of symptoms was February 28, 2025. 01:41 Method Of Arrival: Ambulatory br2 01:41 Acuity: CRISTIN 3 br2 Triage Assessment: 01:43 General: Appears in no apparent distress. comfortable, Behavior is calm, cooperative. br2 Pain: Complains of pain in right ear, left ear, soft palate and uvula Pain currently is 3 out of 10 on a pain scale. Respiratory: Reports shortness of breath at rest on exertion Onset: The symptoms/episode began/occurred TWO WEEKS , the patient has mild shortness of breath. Historical: - Allergies: 01:43 No Known Allergies; br2 - Home Meds: 01:43 None [Active]; br2 - PSHx: 01:43 None; br2 - Immunization history:: Adult Immunizations up to date. - Infectious Disease History:: Denies. - Social history:: Smoking status: Patient/guardian denies using tobacco, Patient/guardian denies using alcohol, street drugs. - Family history:: not pertinent. Screenin:48 [facility] ED Fall Risk Assessment (Adult) History of falling in the last 3 months, rg5 including since admission No falls in past 3 months (0 pts) Confusion or Disorientation No (0 pts) Intoxicated or Sedated No (0 pts) Impaired Gait No (0 pts) Mobility Assist Device Used No (0 pt) Altered Elimination No (0 pt) Score/Fall Risk Level 0 - 2 = Low Risk Oriented to surroundings, Maintained a safe environment, Provided non-skid footwear. Abuse screen: Denies threats or abuse. Nutritional screening: No deficits noted. Tuberculosis screening: No symptoms or risk factors identified. Assessment: 01:48 General: Appears in no apparent distress. comfortable, Behavior is calm, cooperative, rg5 appropriate for age. Neuro: Level of Consciousness is awake, alert, obeys commands, Oriented to person, place, time, situation. Cardiovascular: Patient's skin is warm and dry. Rhythm is regular. Respiratory: Reports shortness of breath cough that is productive, Airway is patent Trachea midline Respiratory effort is even, unlabored. GI: Abdomen is round non-distended. : No signs and/or symptoms were reported regarding the genitourinary system. EENT: No signs and/or symptoms were reported regarding the EENT system. Derm: Skin is intact, Skin is dry, Skin is normal, Skin temperature is warm. Musculoskeletal: Circulation, motion, and sensation intact. Range of motion:. 02:23 Reassessment: Patient and/or family updated on plan of care and expected duration. Pain rg5 level reassessed. Patient is alert, oriented x 3, equal unlabored respirations, skin warm/dry/pink. 03:25 Reassessment: No changes from previously documented assessment. Patient and/or family rg5 updated on plan of care and expected duration. Pain level reassessed. Patient is alert, oriented x 3, equal unlabored respirations, skin warm/dry/pink. 04:30 Reassessment: Patient and/or family updated on plan of care and expected duration. Pain rg5 level reassessed. Patient is alert, oriented x 3, equal unlabored respirations, skin warm/dry/pink. Patient states feeling better. Respiratory: Breath sounds are clear. 05:30 Reassessment: Patient and/or family updated on plan of care and expected duration. Pain rg5 level reassessed. Patient is alert, oriented x 3, equal unlabored respirations, skin warm/dry/pink. Patient states feeling better. Patient states symptoms have improved. Vital Signs: 01:41 BP 133 / 81; Pulse 74; Resp 18; Temp 98.3; Pulse Ox 98% ; Weight 99.79 kg; Height 5 ft. br2 11 in. ; Pain 3/10; 02:22 BP 141 / 92; Pulse 75; Pulse Ox 98% on R/A; rg5 03:13 BP 138 / 89; Pulse 74; Resp 19; Pulse Ox 100% ; rg5 04:30 BP 125 / 82; Pulse 75; Resp 19; Pulse Ox 98% on R/A; rg5 01:41 Body Mass Index 30.68 (99.79 kg, 180.34 cm) br2 01:41 Pain Scale: Adult br2 Benji Coma Score: 20:54 Eye Response: spontaneous(4). Motor Response: obeys commands(6). Verbal Response: sp4 oriented(5). Total: 15. ED Course: 01:28 Patient arrived in ED. [id number] 01:39 Rai Juan MD is Attending Physician. sp4 01:41 Andrea Gallego RN is Primary Nurse. rg5 01:43 Triage completed. br2 01:43 Arm band placed on right wrist. br2 01:48 Patient has correct armband on for positive identification. Bed in low position. Call rg5 light in reach. Side rails up X 1. Door closed. Noise minimized. Verbal reassurance given. 01:48 No provider procedures requiring assistance completed. rg5 01:54 Radiology exam delayed due to lab results not completed at this time. (BUN/Creatinine). sj 02:47 XRAY Chest (1 view) In Process Unspecified. EDMS 03:[address] rg5 03:37 CT Chest For PE Angio In Process Unspecified. EDMS 05:31 Provided Education on: post er care. rg5 05:31 IV discontinued, bleeding controlled, No redness/swelling at site. Pressure dressing rg5 applied. Administered Medications: 02:15 Drug: NS 0.9% IV 1000 ml IV at 1 bolus Per protocol; to be given as a bolus over 60 rg5 minutes Route: IV; Rate: 1 bolus; Site: right antecubital; 03:30 Follow up: IV Status: Completed infusion; IV Intake: 1000ml rg5 02:15 Drug: Rocephin - Rocephin (cefTRIAXone) IVPB 1 grams IVPB once over 30 mins; (mix in 50 rg5 mL NS) Route: IVPB; Infused Over: 30 mins; Site: right antecubital; 02:45 Follow up: IV Status: Completed infusion rg5 02:15 Drug: Dextromethorphan-Guaifenesin PO Liquid 10 mg-100 mg/5 mL 20 ml PO once Route: PO; rg5 02:32 Follow up: Response: No adverse reaction rg5 03:08 Drug: MethylPrednisoLONE IVP 125 mg IVP once Route: IVP; Site: right antecubital; rg5 05:29 Follow up: Response: No adverse reaction; Pain is decreased rg5 05:15 Drug: Dextromethorphan-Guaifenesin PO Liquid 10 mg-100 mg/5 mL 20 ml PO once Route: PO; rg5 05:29 Follow up: Response: No adverse reaction; Pain is decreased rg5 Medication: 01:48 VIS not applicable for this client. rg5 Intake: 03:30 IV: 1000ml; Total: 1000ml. rg5 Outcome: 05:13 Discharge ordered by . sp4 05:31 Discharged to home ambulatory, rg5 05:31 Condition: stable 05:31 Discharge instructions given to patient, Instructed on discharge instructions, Demonstrated understanding of instructions, medications, Prescriptions given X 3, 05:32 Patient left the ED. rg5 Signatures: Dispatcher [employer] Lorraine Lou Jennifer [email or web address] Rai Juan MD MD sp4 Andrea Gallego RN RN rg5 Mitra Adrian RN RN br2
[2025-03-14 05:37] VITALS: TEMP 98.3
[2025-03-14 05:43] VITALS: BP 125/82; O2SAT 98
--- NOTE | 2025-03-14 06:15 | RAD REPORT ---
XR CHEST 1 VIEW CLINICAL INDICATION: Chest pain COMPARISON: Chest radiograph 03/11/2025 FINDINGS: SUPPORT DEVICES: None LUNGS/PLEURAL SPACES: Perihilar and basilar interstitial prominence. No focal opacity. No pleural eff usion. No pneumothorax. HEART/MEDIASTINUM: Within normal range. BONES/UPPER ABDOMEN/SOFT TISSUES: No acute findings. IMPRESSION: Perihilar and basilar interstitial prominence. No focal opacity. Electronically signed by: Disha Bustamante MD 03/14/2025 03:39 AM CDT Due to temporary technical issues with the PACS/spotdock reporting system, reports are being earnestine d by the in-house radiologist without review as a courtesy to ensure prompt reporting the interpreting radiologist is fully responsible for the content of the report. Transcribed Date/Time: 03/14/2025 6:14 AM
== END 2025-03-14 05:32 | disposition home or self-care (01) ==
LOC: ER 01:28
DX: R05.9 Cough, unspecified (principal); R09.3 Abnormal sputum; I26.93 Single subsegmental thrombotic pulmonary embolism without acute cor pulmonale
CPT/HCPCS: 87040 ×2; 85025; 80048; 36415; 83735; 85610; 80076; 71275; 71045; Q9967; J2919; J7030; J0696